=== PATIENT | male | born 1980 | race Caucasian/White ===

== ENCOUNTER 2018-12-02 21:12 | Emergency (ER) | payer BC ==
[~2018-12-02] VITALS: Ht 175.3 cm; Wt 99.8 kg
[2018-12-02 21:19] VITALS: Ht 175.3 cm; Wt 99.8 kg
[2018-12-02 23:56] LABS: microscopic required? NO
[2018-12-03 00:01] LABS: BASOPHIL % 0.4 % (0-2); PLATELET COUNT 252 x10^3mcL (130-400); RED CELL DISTRIBUTION WIDTH 12.4 % (11.5-14.5)
[2018-12-03 00:09] LABS: urine erythrocyte NEGATIVE (NEGATIVE)
[2018-12-03 00:38] LABS: T3 TOTAL 1.16 ng/mL
[2018-12-03 01:03] LABS: CALCIUM 8.7 mg/dL (8.5-10.1); CARBON DIOXIDE 28.7 mmol/L (21-32); CHLORIDE SERUM 107 mmol/L (98-107); GFR1 > 60 mL/min; GLUCOSE SERUM 122 mg/dL (74-106); SODIUM SERUM 144 mmol/L (136-145)
[2018-12-03 01:13] LABS: ALBUMIN 3.9 g/dL (3.4-5.0); ALKALINE PHOSPHATASE 60 U/L (46-116); ALT/SGPT 51 U/L (16-63); AST/SGOT 23 U/L (15-37); BILIRUBIN TOTAL 0.3 mg/dL (0.20-1.00); CHOLESTEROL 182 mg/dL (<200); LIPASE 156 IU/L (73-393); TOTAL PROTEIN, SERUM 7.4 g/dL (6.4-8.2)
[2018-12-03 01:14] LABS: CHOLESTEROL/HDL RATIO 5.5; HDL CHOLESTEROL 33 mg/dL (40-60); TRIGLYCERIDES 329 mg/dL (<150)
[2018-12-03 01:39] LABS: FREE T4 0.85 ng/dL (0.76-1.46); FREE THYROXINE INDEX 2.6 ug/dL (1.4-4.5); T4(THYROXINE) 7.5 ug/dL (4.7-13.3)
[2018-12-03 02:03] VITALS: BP 151/82
== END 2018-12-03 02:03 | disposition home or self-care (01) ==
LOC: ED 21:12
PROVIDERS: Specialist
DX: R10.11 Right upper quadrant pain (principal); I10 Essential (primary) hypertension
CPT/HCPCS: 83880; 84439; J1885; J7030; Q0092